=== PATIENT | male | born 1945 | race Two or more races ===

== ENCOUNTER 2023-09-11 14:20 | Outpatient (CLI) | payer MEDICARE, OTHER ==
[2023-09-11 14:49] LABS: BASOPHILS # (AUTO) 0.3 10^3/uL (0.0-0.1); BASOPHILS % (AUTO) 1.6 %; EOSINOPHILS # (AUTO) 0.4 10^3/uL (0.0-0.7); EOSINOPHILS % (AUTO) 2.8 %; HCT - HEMATOCRIT 54.7 % (42.0-52.0); HGB - HEMOGLOBIN 16.1 g/dL (14.0-18.0); LYMPHOCYTES # (AUTO) 1.4 10^3/uL (1.5-3.5); LYMPHOCYTES % (AUTO) 8.8 %; MEAN CORPUSCULAR HEMOGLOBIN 21.2 pg (27.0-31.0); MEAN CORPUSCULAR HGB CONC 29.4 g/dL (32.0-36.0); MEAN CORPUSCULAR VOLUME 71.9 fL (80.0-94.0); MEAN PLATELET VOLUME 10.3 fL (7.4-11.4); MONOCYTES # (AUTO) 0.7 10^3/uL (0.0-1.0); MONOCYTES % (AUTO) 4.3 %; NEUTROPHILS % (AUTO) 81.5 %; RED BLOOD COUNT 7.61 10^6/uL (4.70-6.10); RED CELL DISTRIBUTION WIDTH 22.9 % (12.0-15.0)
[2023-09-11 14:52] LABS: BILIRUBIN,URINE NEGATIVE (NEGATIVE); GLUCOSE, URINE (UA) NEGATIVE (NEGATIVE); KETONES,URINE (UA) NEGATIVE (NEGATIVE); LEUKOCYTE ESTERASE, URINE NEGATIVE (NEGATIVE); NITRITE,URINE NEGATIVE (NEGATIVE); OCCULT BLOOD,URINE NEGATIVE (NEGATIVE); PH,URINE 5.5 PH (5.0-7.5); PROTEIN,URINE NEGATIVE (NEGATIVE); UROBILINOGEN,URINE 0.2 (NORMAL) E.U./dL (NORMAL)
[2023-09-11 15:01] LABS: CLARITY,URINE CLEAR (CLEAR)
[2023-09-11 15:03] LABS: ALBUMIN 4.5 g/dL (3.2-5.5); ALBUMIN/GLOBULIN RATIO 1.3 (1.0-2.2); ALKALINE PHOSPHATASE 122 IU/L (42-121); ALT ALANINE AMINOTRANSFERASE 21 IU/L (10-60); AST ASPARTATE AMINOTRANSFERASE 25 IU/L (10-42); BILIRUBIN,TOTAL 0.5 mg/dL (0.2-1.0); BUN - BLOOD UREA NITROGEN 19 mg/dL (6-20); CALCIUM 9.7 mg/dL (8.5-10.3); CARBON DIOXIDE - CO2 28 mmol/L (21-32); CHLORIDE 103 mmol/L (101-111); CHOL/HDL RATIO 5.9 (<5.0); CHOLESTEROL 148 mg/dL; CREATININE 1.5 mg/dL (0.6-1.3); GFR - MDRD 46 (>89); GLUCOSE 125 mg/dL (74-104); HDL CHOLESTEROL 25 mg/dL; LDL CHOLESTEROL,CALCULATED 83 mg/dL; LDL/HDL RATIO 3.3 (<3.6); POTASSIUM 4.4 mmol/L (3.5-4.5); SODIUM 137 mmol/L (135-145); TRIGLYCERIDES 201 mg/dL (48-352); VLDL CHOLESTEROL 40 mg/dL
[2023-09-11 15:09] LABS: PLT - PLATELET COUNT 1123 10^3/uL (130-450)
[2023-09-11 15:16] LABS: THYROID STIMULATING HORMONE 1.02 uIU/mL (0.34-5.60)
[2023-09-11 15:42] LABS: BACTERIA,URINE Rare /HPF (None Seen); RBC,URINE 0-5 /HPF (0-5); SQUAMOUS EPITHELIAL CELL,UR RARE Squamous (<= Few); WBC,URINE 0-3 /HPF (0-3)
[2023-09-11 15:52] LABS: SLIDE REVIEW? Indicated
[2023-09-11 15:53] LABS: PLATELET ESTIMATE, MANUAL INCREASED (>450,000) (NORMAL); PLATELET MORPHOLOGY 1+ GIANT PLATELETS (NORMAL)
== END 2023-09-11 14:21 | disposition home or self-care (01) ==
LOC: LAB 14:20
PROVIDERS: ATTEND Nurse Practitioner Family
DX: R35.1 Nocturia (principal); I10 Essential (primary) hypertension; R35.0 Frequency of micturition; R53.1 Weakness
CPT/HCPCS: 36415; 80053; 80061; 81001; 83721; 84153; 84443; 85025; 87086

== ENCOUNTER 2024-01-25 08:24 | Day surgery (SDC) | payer MEDICARE, OTHER ==
[2024-01-25] MEDS: LACTATED RINGERS 1,000 ML IV ONE ×2 (08:32→10:19)
[2024-01-25] MEDS ORDERED: PROPOFOL 500 MG/50 ML 500 MG/50 ML VIAL ONE (09:41)
--- NOTE | 2024-01-25 09:42 | ANESTHESIA ---
Pre-Anesthesia VS, & Labs - Diagnosis elevated psa - Procedure truss prostate biopsy Vital Signs: Temp Pulse Resp BP Pulse Ox O2 Flow Rate 36.6 C 88 16 164/92 H 98 0 01/25/24 08:43 01/25/24 08:43 01/25/24 08:43 01/25/24 08:43 01/25/24 08:43 01/25/24 08:43 Height: 5 ft 11 in Weight (kg): 76.4 kg Body Mass Index: 23.5 BMI Classification: Normal - NPO Last Fluid Intake: 0630 Last Food Intake: >8hr Home Medications and Allergies Home Medications: Ambulatory Orders Hydroxyurea [Hydrea] 500 mg PO DAILY 01/25/24 amLODIPine [Norvasc] 5 mg PO DAILY 01/25/24 Hydroxyurea [Hydrea] 500 mg PO DAILY 01/25/24 amLODIPine [Norvasc] 5 mg PO DAILY 01/25/24 Allergies/Adverse Reactions: Allergies Allergy/AdvReac Type Severity Reaction Status Date / Time No Known Drug Allergies Allergy Verified 01/25/24 08:54 Anes History & Medical History - Anesthetic History Anesthesia Complications: reports: No previous complications - Medical History Cardiovascular: reports: Hypertension, Murmur Pulmonary: reports: None Gastrointestinal: reports: None Urinary: reports: Benign prostate hypertrophy Musculoskeletal: reports: None Endocrine/Autoimmune: reports: None Skin: reports: None Psychosocial: reports: No issues indicated - Surgical History Orthopedic: reports: Other Exam General: Alert, Oriented x3 Dental: WNL Mouth Openin Fingerbreadth Neck Mobility: Normal Mallampati classification: II Thyromental Distance: 4-6 cm Respiratory: Lungs clear Cardiovascular: Regular rate Plan Anesthesia Type: Total IV Consent for Procedure(s) Verified and Reviewed: Yes Code Status: Attempt Resuscitation ASA classification: 2-Mild systemic disease Is this case an emergency?: No
[2024-01-25] MEDS ORDERED: lidocaine 1% 20 ML MDV ONE (09:45)
[2024-01-25] MEDS ORDERED: LIDOCAINE-PF 2% 10 ML AMP SUBQ ONE (10:00)
[2024-01-25] MEDS: LIDOCAINE 1% 50 ML MDV SUBQ ONE (10:03)
[2024-01-25] MEDS ORDERED: ONDANSETRON 4 MG/2 ML VIAL IVP PRN (10:13)
[2024-01-25] MEDS ORDERED: HYDROcod/ACETAM 5/325 MG TABLET PO PRN (10:13)
--- NOTE | 2024-01-25 10:16 | Discharge Plan ---
Discharge Plan Problem Reviewed?: Yes Disposition: Home, Self Care Condition: Good Diet: Regular Activity Restrictions: No Restrictions Shower Restrictions: No Driving Restrictions: No Instruction Topics: Biopsy Ultrasound Transrectal Additional Instructions or Follow Up instructions: You have an appointment with Dr. Dos Santos on February 01 at 10:15 AM. Please arrive 15 minutes early No Smoking: If you smoke, Please STOP! Call for help. Follow-up with: KALA PLAZA MD [Primary Care Provider] - Nickolas Dos Santos MD [Provider Admit Priv/Credential] -
--- NOTE | 2024-01-25 10:19 | OPERATIVE REPORT ---
Operative Report - General Procedure Date: 01/25/24 Planned Procedure: transrectal ultrasound guided prostate biopsy Pre-Op Diagnosis: Elevated PSA Procedure Performed: transrectal ultrasound guided prostate biopsy Post Op Diagnosis: Elevated PSA - Procedure Note Primary Surgeon: Levon Anesthesia Provider: NOLVIA De La Rosa Anesthesia Technique: Moderate sedation Pathology: routine prostate biopsy specimens Estimated Blood Loss (mL): 1 Findings: routine prostate biopsy prostate volume 25.9cc Complications: none - Other Other Information/Narrative: After informed consent was obtained the patient was brought to the OR and laid in the supine position. The patient was then anesthetized per anesthesia protocols and placed in the left lower cubitus position with left side down. A timeout was performed reconfirming the patient, procedure and laterality. A transrectal ultrasound-guided probe was placed per rectum and his prostate was visualized. 5 cc 1% lidocaine was placed at the lateral aspect of the prostate bilaterally. The prostate volume was measured at 33.3 cc Using 18-gauge biopsy needle we obtained samples of the prostate from the right and left side, the lateral and medial aspects of the base, mid and apex for a total of 12 samples. These were sent for analysis separately. The probe was slowly removed and no bleeding was identified. The patient tolerated procedure well and was brought to the PACU without further incident. He will follow-up in a few weeks time for pathology discussion
--- NOTE | 2024-01-25 10:32 | ANESTHESIA POST OP EVALUATION ---
Anesthesia Post Eval - Post Anesthesia Eval Vitals: Last Vital Signs Temp 36.5 C 01/25/24 10:20 Pulse 78 01/25/24 10:20 Resp 14 01/25/24 10:20 BP 106/78 01/25/24 10:20 Pulse Ox 100 01/25/24 10:20 O2 Flow Rate 0 01/25/24 08:43 CV Function Including HR & BP: Stable Pain Control: Satisfactory Nausea & Vomiting: Negative Mental Status: Baseline Respiratory Status: Airway Patent Hydration Status: Satisfactory Anesthesia Complications: None
[2024-01-25 10:45] VITALS: BP 143/94; O2SAT 98
== END 2024-01-25 08:25 | disposition home or self-care (01) ==
LOC: SDS 08:24
PROVIDERS: ATTEND Urology
PROC: 0VB07ZX Excision of Prostate, Via Natural or Artificial Opening, Diagnostic (ICD-10-PCS; principal; 2024-01-25 10:30)
DX: C61 Malignant neoplasm of prostate (principal); N40.1 Benign prostatic hyperplasia with lower urinary tract symptoms; R35.1 Nocturia; Z79.82 Long term (current) use of aspirin
CPT/HCPCS: 55700; 76942; J7120